=== PATIENT | male | born 1980 | race Caucasian/White ===

== ENCOUNTER 2019-09-23 02:46 | Emergency (ER) | payer SELFPAY ==
[~2019-09-23] VITALS: Ht 185.4 cm; Wt 89.4 kg
[2019-09-23 03:18] VITALS: BP 153/80
--- NOTE | 2019-09-23 03:23 | NUR ---
PT TAKEN BACK TO LOBBY
--- NOTE | 2019-09-23 03:27 | NUR ---
PT TAKEN TO BED 3
[2019-09-23] MEDS ORDERED: ALBUTEROL SULFATE/IPRATROPIU 3 ML SOL IH ONE (03:40)
--- NOTE | 2019-09-23 04:01 | NUR ---
38 YEAR OLD MALE COMPLAINS OF COUGH X 4 MONTHS WELL SHORTNESS OF BREATHE ON ADMISSION. PATIENT STATES COUGH HAS BEEN NONPRODUCTIVE. PATIENT LUNG SOUNDS CTABL, BREATHING EVEN AND UNLABORED. PATIENT STATES THAT BREATHING TREATMENT HAD HELPED HIM BREATHE MUCH EASIER. PATIENT ALERT AND ORIENTED, SKIN WARM AND DRY. BED IN LOWEST POSITION, LOCKED, BED RAIL UPX1. PMH - DENIES MEDS - DENIES ALLERGIES - NKA
[2019-09-23 04:36] VITALS: BP 153/80
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
== END 2019-09-23 04:36 | disposition home or self-care (01) ==
LOC: MED 02:46
DX: J20.9 Acute bronchitis, unspecified (principal); I10 Essential (primary) hypertension; Z71.6 Tobacco abuse counseling
CPT/HCPCS: 94640; 99283; J7620

== ENCOUNTER 2020-07-12 04:48 | Emergency (ER) | payer SELFPAY ==
[~2020-07-12] VITALS: Ht 172.7 cm; Wt 77.1 kg
--- NOTE | 2020-07-12 04:52 | NUR ---
PT TAKEN TO BED 4
[2020-07-12 05:00] VITALS: BP 145/93
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
--- NOTE | 2020-07-12 05:07 | NUR ---
Dr. Carvajal examining patient.
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
[2020-07-12] MEDS ORDERED: KETOROLAC 60 MG/2 ML VIAL IM ONE (05:20)
[2020-07-12 05:46] VITALS: BP 145/93
== END 2020-07-12 05:45 | disposition home or self-care (01) ==
LOC: MED 04:48
DX: S01.81XA Laceration without foreign body of other part of head, initial encounter (principal); S01.01XA Laceration without foreign body of scalp, initial encounter; F17.200 Nicotine dependence, unspecified, uncomplicated; Y09 Assault by unspecified means; Y93.89 Activity, other specified; Y92.89 Other specified places as the place of occurrence of the external cause; Y99.8 Other external cause status
CPT/HCPCS: 12002; 12011; 90471; 90715; 96372; 99283; J1885

== ENCOUNTER 2022-09-13 02:13 | Emergency (ER) | payer SELFPAY ==
[~2022-09-13] VITALS: Ht 185.4 cm; Wt 117.9 kg
[2022-09-13 02:43] VITALS: BP 144/72
--- NOTE | 2022-09-13 02:48 | NUR ---
TO LOBBY FOLLOWING TRIAGE
--- NOTE | 2022-09-13 05:34 | NUR ---
Dr. Dan examining patient.
[2022-09-13] MEDS ORDERED: SULF-59 PO (05:39)
[2022-09-13 05:40] VITALS: BP 144/72
--- NOTE | 2022-09-13 05:40 | NUR ---
Patient discharged with v/s stable. Written and verbal after care instructions given and explained. Patient verbalized understanding. Ambulatory with steady gait. All questions addressed prior to discharge. Advised to follow up with PMD.
== END 2022-09-13 05:40 | disposition home or self-care (01) ==
LOC: MED 02:13
DX: L02.512 Cutaneous abscess of left hand (principal)
CPT/HCPCS: 99283

== ENCOUNTER 2023-08-31 21:23 | Emergency (ER) | payer OTHER ==
[~2023-08-31] VITALS: Ht 185.4 cm; Wt 117.9 kg
[~2023-08-31 21:23] MED LIST: SULF-59 PO
[2023-08-31 21:51] VITALS: BP 147/107; PULSE 91; RESP 18; TEMP 98.1; O2SAT 99
[2023-08-31] MEDS ORDERED: TETRACAINE HCL/PF 0.5% OPTH 4 ML BTL OP ONE (23:10)
[2023-08-31] MEDS ORDERED: FLUORESCEIN OPTH STRIP 1 MG OP ONE (23:10)
[2023-09-01] MEDS ORDERED: OFLO5DRO2 RIGHT EYE (00:20)
[2023-09-01 01:00] VITALS: BP 147/107; PULSE 91; RESP 18; TEMP 98.1; O2SAT 99
== END 2023-09-01 01:00 | disposition home or self-care (01) ==
LOC: MED 21:23
DX: H10.9 Unspecified conjunctivitis (principal); N48.89 Other specified disorders of penis; Z79.2 Long term (current) use of antibiotics
CPT/HCPCS: 99283